=== PATIENT | female | born 1970 | race Two or more races ===

== ENCOUNTER 2022-03-10 09:37 | Day surgery (SDC) | payer OTHER ==
[~2022-03-10] VITALS: Ht 160 cm; Wt 68.0 kg
[~2022-03-10 09:37] MED LIST: MEGACE
== END 2022-03-10 17:05 | disposition home or self-care (01) ==
LOC: CIR.AMB 09:37
PROVIDERS: ATTEND Specialist
DX: D25.0 Submucous leiomyoma of uterus (principal); N92.6 Irregular menstruation, unspecified; Z20.822 Contact with and (suspected) exposure to COVID-19

== ENCOUNTER 2022-06-08 09:00 | Inpatient (IN) | payer OTHER ==
[~2022-06-08] VITALS: Ht 160 cm; Wt 68.0 kg
== END 2022-06-11 17:06 | disposition home or self-care (01) | DRG 743 ==
LOC: OB/GYN 06-09 08:00 → O/R 06-09 08:00 → SURG 06-09 09:00 → OB/GYN 06-09 14:13
PROVIDERS: ADMIT Specialist; ATTEND Specialist
PROC: 0UT7FZZ Resection of Bilateral Fallopian Tubes, Via Natural or Artificial Opening With Percutaneous Endoscopic Assistance (ICD-10-PCS; 2022-06-09)
PROC: 0UT2FZZ Resection of Bilateral Ovaries, Via Natural or Artificial Opening With Percutaneous Endoscopic Assistance (ICD-10-PCS; 2022-06-09)
PROC: 0DNW4ZZ Release Peritoneum, Percutaneous Endoscopic Approach (ICD-10-PCS; 2022-06-09)
PROC: 0UT9FZZ Resection of Uterus, Via Natural or Artificial Opening With Percutaneous Endoscopic Assistance (ICD-10-PCS; principal; 2022-06-09 08:15)
DX: N80.0 Endometriosis of uterus (principal); N72 Inflammatory disease of cervix uteri; N83.291 Other ovarian cyst, right side; N83.292 Other ovarian cyst, left side; N83.01 Follicular cyst of right ovary; Z20.822 Contact with and (suspected) exposure to COVID-19